=== PATIENT | female | born 1975 | race Caucasian/White ===

== ENCOUNTER 2023-08-04 22:26 | Emergency (ER) | payer SELFPAY ==
[2023-08-04 22:44] VITALS: PULSE 114
== END 2023-08-04 23:55 | disposition left against medical advice (07) ==
LOC: ER 22:26
DX: R11.2 Nausea with vomiting, unspecified (principal); Z53.21 Procedure and treatment not carried out due to patient leaving prior to being seen by health care provider
CPT/HCPCS: 99281